=== PATIENT | male | born 1945 | race Caucasian/White ===

== ENCOUNTER 2016-03-20 21:16 | Emergency (ER) | payer MEDICARE ==
[2016-03-20] MEDS ORDERED: IPRATROPIUM/ALBUTEROL SULFATE 3 ML AMPUL.NEB NEB ONE ×2 (21:31→21:32)
[2016-03-20 22:29] LABS: EOSINOPHILS % 1.6 % (0.0-6.8); LYMPHOCYTES # 2.6 # k/uL (0.6-4.0); MEAN CORPUSCULAR HEMOGLOBIN 29.4 pg (28.0-34.0); MONOCYTES # 0.4 # k/uL (0.0-0.9); MONOCYTES % 7.4 % (0.0-11.0); NEUTROPHILS # 2.5 # k/uL (1.4-7.7)
--- NOTE | 2016-03-20 22:40 | ED Physician Documentation ---
General Adult - HISTORIAN Historian: patient, spouse - HPI Stated Complaint: cough and congestion Chief Complaint: General Adult Additional Information: One week increased cough and congestion. No fever. Saw Bailey Vivas last week. Completed 4 mg dose pack today as well as 7th day of amoxicillin. No better - ROS CONST: denies: fever MS/SKIN/LYMPH: other (no body aches) - PAST HX Past History: COPD Allergies/Adverse Reactions: Allergies Allergy/AdvReac Type Severity Reaction Status Date / Time No Known Drug Allergies Allergy Verified 03/20/16 22:46 Home Medications: Ambulatory Orders Medication Instructions Recorded Albuterol Sulfate [Ventolin HFN] 2.5 mg NEB Q6 PRN #120 ml 03/20/16 Nebulizer/Compressor [Devilbiss 1 each MC Q6H PRN #1 each 03/20/16 Pulmoneb Lt Comp-Neb] - SOCIAL HX Smoking History: cigarettes - FAMILY HX Family History: No - VITAL SIGNS Vital Signs: Vital Signs Temp Pulse Resp BP Pulse Ox 163/120 01/02/13 12:42 - REVIEWED ASSESSMENTS Nursing Assessment Reviewed: Yes Vitals Reviewed: Yes Progress - Progress Progress: Chest 2 views History: COPD exacerbation and cough Findings: Extremely low lung volumes are observed with moderate atelectasis at the lung bases. There is no visible infiltrate or pleural effusion. Heart size is normal. There has been no change since the 2012 exam. Impression: Extremely low lung volumes with moderate bibasilar atelectasis. Electronically signed on Mar 20, 2016 10:20:19 PM PREP MANAGER by: Gamaliel Sma Breathing easier after Duoneb. Feels like he could go home. No nebulizer at home. ED Results Lab/Radiology - Lab Results Lab Results: Lab Results 03/20/16 22:20 WBC 5.90 K/ul K/ul (4.00-12.00) RBC 6.03 M/ul H M/ul (3.90-5.20) Hgb 17.7 g/dL g/dL (12.0-18.0) Hct 50.5 % % (37.0-53.0) MCV 83.8 fl fl (80.0-100.0) MCH 29.4 pg pg (28.0-34.0) MCHC 35.1 g/dL g/dL (30.0-36.0) RDW 14.3 % % (11.3-14.3) Plt Count 224 K/mm3 K/mm3 (130-400) Neut % (Auto) 41.8 % % (39.0-79.0) Lymph % (Auto) 44.0 % % (16.0-50.0) [place] % (Auto) 7.4 % % (0.0-11.0) Eos % (Auto) 1.6 % % (0.0-6.8) Baso % (Auto) 1.0 (0.0-1.5) Neut # 2.5 # k/uL # k/uL (1.4-7.7) Lymph # 2.6 # k/uL # k/uL (0.6-4.0) [place] # 0.4 # k/uL # k/uL (0.0-0.9) Eos # 0.1 # k/uL # k/uL (0.0-0.6) Baso # 0.1 # k/uL # k/uL (0.0-0.5) Reactive Lymphs % 4.2 % % (0.0-5.0) Reactive Lymphs # 0.2 # k/uL # k/uL (0.0-0.8) - Orders Orders: ED Orders Category Date Time Status CHEST 2 VIEW [CHEST P.A.&LAT 2 VIEWS] [RAD] Stat Exams 03/20/16 Ordered CBC/PLATELET/DIFF Routine Lab 03/20/16 22:20 Completed CMP [CMP] Routine Lab 03/20/16 22:20 Received Ipratropium/Albuterol Sulfate [Duoneb] Med 03/20/16 21:32 Discontinued 3 ml NEB .STK-MED ONE Ipratropium/Albuterol Sulfate [Duoneb] Med 03/20/16 21:31 Discontinued 3 ml NEB NOW ONE General Adult Physical Exam - PHYSICAL EXAM GENERAL APPEARANCE: frequent wet cough EENT: eye inspection normal, ENT inspection normal, pharynx normal, no signs of dehydration, [place] NECK: normal inspection, supple RESPIRATORY: breath sounds normal (but markedly decreased throughout) CVS: reg rate & rhythm, heart sounds normal, no murmur RECTAL: deferred BACK: normal inspection SKIN: warm/dry, normal color EXTREMITIES: normal range of motion (gait ), no evidence of injury NEURO: CN's nml as tested, motor nml, sensation nml, cognition normal Discharge Clincal Impression: URI (upper respiratory infection) Qualifiers: URI type: unspecified viral URI Qualified Code(s): J06.9 - Acute upper respiratory infection, unspecified; B97.89 - Other viral agents as the cause of diseases classified elsewhere COPD (chronic obstructive pulmonary disease) Qualifiers: COPD type: COPD with acute exacerbation Qualified Code(s): J44.1 - Chronic obstructive pulmonary disease with (acute) exacerbation Prescriptions: Albuterol Sulfate [Ventolin HFN] 2.5 mg NEB Q6 PRN #120 ml PRN Reason: Wheezing Nebulizer/Compressor [Devilbiss Pulmoneb Lt Comp-Neb] 1 each MC Q6H PRN #1 each PRN Reason: Wheezing Home Medications: Ambulatory Orders Albuterol Sulfate [Ventolin HFN] 2.5 mg NEB Q6 PRN #120 ml 03/20/16 Nebulizer/Compressor [Devilbiss Pulmoneb Lt Comp-Neb] 1 each MC Q6H PRN #1 each 03/20/16 Condition: Fair Disposition: 01 HOME, SELF-CARE Decision to Admit: NO Decision Time: 23:24
[2016-03-20] MEDS ORDERED: ALBUTEROL SULFATE 2.5 MG/3 ML AMPUL.NEB NEB ONE (22:45)
[2016-03-20 23:15] LABS: eGFR (African) > 60; eGFR (Non-African) > 60
[2016-03-21 01:09] VITALS: BP 116/67
--- NOTE | 2016-03-21 06:25 | Diagnostic Imaging Report ---
Report Submission Date: Mar 20, 2016 10:20:19 PM ELECTROPLATING SALES REPRESENTATIVE Patient ~ Study Name: MARCOS MAURICIO ~ Date: Mar 20, 2016 10:04:55 PM ELECTROPLATING SALES REPRESENTATIVE ~ Modality Type: CR Gender: M ~ Description: CHEST : 49 ~ Institution: [facility] Physician: RICARDO PINON ~ ~ ~ ~ Chest 2 views History: COPD exacerbation and cough Findings: Extremely low lung volumes are observed with moderate atelectasis at the lung bases. There is no visible infiltrate or pleural effusion. Heart size is normal. There has been no change since the 2013 exam. Impression: Extremely low lung volumes with moderate bibasilar atelectasis. ~ Electronically signed on Mar 20, 2016 10:20:19 PM ELECTROPLATING SALES REPRESENTATIVE by: Gamaliel ALEXANDRA
== END 2016-03-21 00:05 | disposition home or self-care (01) ==
LOC: ED 21:16
DX: J06.9 Acute upper respiratory infection, unspecified (principal); J44.1 Chronic obstructive pulmonary disease with (acute) exacerbation
CPT/HCPCS: 71020; 80053; 85025; 94640; 99283

== ENCOUNTER 2016-08-31 09:36 | Emergency (ER) | payer OTHER ==
--- NOTE | 2016-08-31 10:28 | ED Physician Documentation ---
Abscess - HISTORIAN Historian: patient - HPI Chief Complaint: Abscess Additional Information: abscess on back neck area c7-t1 suspect old sebaceous cyst. very min tenderness-not fluctuant. Onset: days ago (few weeks) Timing: worse Quality: painful (slight) Context: Food Exposure: none - ROS CONST: no problems CVS/RESP: none EYES/ENT: none GI/: none MS/SKIN/LYMPH: none NEURO/PSYCH: none - PAST HX Past History: hypertension Surgeries/Procedures: Yes (hernia gb stonl lasered) Allergies/Adverse Reactions: Allergies Allergy/AdvReac Type Severity Reaction Status Date / Time No Known Drug Allergies Allergy Verified 03/20/16 22:46 Home Medications: Ambulatory Orders Medication Instructions Recorded Albuterol Sulfate [Ventolin HFN] 2.5 mg NEB Q6 PRN #120 ml 03/20/16 Nebulizer/Compressor [Devilbiss 1 each MC Q6H PRN #1 each 03/20/16 Pulmoneb Lt Comp-Neb] - SOCIAL HX Smoking History: non-smoker Alcohol Use: none Drug Use: none - FAMILY HX Family History: none - VITAL SIGNS Vital Signs: Vital Signs Temp Pulse Resp BP Pulse Ox 116/67 03/21/16 01:07 - REVIEWED ASSESSMENTS Nursing Assessment Reviewed: Yes Vitals Reviewed: Yes Abscess Physical Exam - EXAM General Appearance: mild distress Skin: warm,dry, tender indurated area. No: cyanotic, diaphoretic, pointing fluctuant with erythema Location: back Character: symmetric Symptoms: warmth, tenderness (very minimal) Extremities: non-tender, nml ROM EENT: eyes nml inspection Neck: trachea midline Respiratory: no resp distress, chest non-tender, breath sounds normal. No: wheezes, rales CVS: reg. rate & rhythm, heart sounds nml Abdomen: non-tender Neuro/Psych: oriented x3, motor nml, sensation nml, mood/affect nml Discharge Clincal Impression: abscess low neck suspect sebaceous cyst Referrals: Bailey Vivas PA [Primary Care Provider] - 2 Days Home Medications: Ambulatory Orders Albuterol Sulfate [Ventolin HFN] 2.5 mg NEB Q6 PRN #120 ml 03/20/16 Nebulizer/Compressor [Devilbiss Pulmoneb Lt Comp-Neb] 1 each MC Q6H PRN #1 each 03/20/16 Condition: Good Disposition: 01 HOME, SELF-CARE Decision to Admit: NO Decision Time: 10:28
[2016-08-31 10:47] VITALS: BP 175/92
== END 2016-08-31 10:32 | disposition home or self-care (01) ==
LOC: ED 09:36
DX: B43.2 Subcutaneous pheomycotic abscess and cyst (principal)
CPT/HCPCS: 99283

== ENCOUNTER 2017-05-14 13:48 | Outpatient (CLI) | payer OTHER ==
[2017-05-14 14:10] LABS: BASOPHILS % 0.7 (0.0-1.5); EOSINOPHILS % 4.2 % (0.0-6.8); MEAN CORPUSCULAR HEMOGLOBIN 30.6 pg (28.0-34.0); MEAN CORPUSCULAR VOLUME 85.7 fl (80.0-100.0); NEUTROPHILS # 4.9 # k/uL (1.4-7.7)
[2017-05-14 14:39] LABS: eGFR (African) > 60; eGFR (Non-African) > 60
== END 2017-05-14 13:50 ==
LOC: LAB 13:48
PROVIDERS: ATTEND Family Medicine
DX: E78.00 Pure hypercholesterolemia, unspecified (principal); I10 Essential (primary) hypertension
CPT/HCPCS: 36415; 80053; 80061; 85025

== ENCOUNTER 2017-07-19 12:16 | Outpatient (CLI) | payer OTHER | END 2017-07-19 14:18 | LOC: LAB 12:16 | PROVIDERS: ATTEND Family Medicine | DX: E78.1 Pure hyperglyceridemia (principal) | CPT/HCPCS: 36415; 80061 ==

== ENCOUNTER 2017-10-12 10:01 | Outpatient (CLI) | payer OTHER ==
[2017-10-12 10:59] LABS: BASOPHILS % 0.6 (0.0-1.5); EOSINOPHILS % 3.8 % (0.0-6.8); MEAN CORPUSCULAR HEMOGLOBIN 29.8 pg (28.0-34.0); MEAN CORPUSCULAR VOLUME 86.1 fl (80.0-100.0); MONOCYTES % 7.4 % (0.0-11.0); NEUTROPHILS # 4.1 # k/uL (1.4-7.7)
--- NOTE | 2017-10-12 17:46 | Diagnostic Imaging Report ---
DESIREE BHATT [facility] [id number] [facility].[address] [id number] Report Submission Date: Oct 12, 2017 11:25:38 AM CDT Patient Study Name: MARCOS MAURICIO Date: Oct 12, 2017 10:19:29 AM CDT Modality Type: DX Gender: M Description: CHEST : 49 Institution: [facility] Physician: DESIREE BHATT PA and lateral chest History: Emphysema. Dyspnea on exertion PA and lateral chest dated October 12, 2017 is compared with March 20, 2016 The cardiomediastinal silhouette is unchanged in size and configuration. Heart size is within normal limits. Pulmonary vascularity is normal. There is no confluent infiltrate or pleural effusion. Impression: No active disease. No change compared with March 20, 2016 Electronically signed on Oct 12, 2017 11:25:38 AM CDT by: Lorena ALEXANDRA
== END 2017-10-12 10:02 ==
LOC: LAB 10:01
PROVIDERS: ATTEND Family Medicine
DX: I50.9 Heart failure, unspecified (principal); I10 Essential (primary) hypertension; R06.09 Other forms of dyspnea; J43.1 Panlobular emphysema
CPT/HCPCS: 36415; 71046; 83880; 85025

== ENCOUNTER 2018-12-18 16:20 | Outpatient (CLI) | payer MEDICARE, OTHER ==
[2018-12-18 17:42] LABS: eGFR (Non-African) > 60
[2018-12-18 17:43] LABS: HDL 27 mg/dL (>40)
== END 2018-12-18 16:25 ==
LOC: LAB 16:20
PROVIDERS: ATTEND Family Medicine
DX: E78.1 Pure hyperglyceridemia (principal); I10 Essential (primary) hypertension; N40.1 Benign prostatic hyperplasia with lower urinary tract symptoms
CPT/HCPCS: 36415; 80053; 80061; 84153; 85027